=== PATIENT | male | born 1960 | race Caucasian/White ===

== ENCOUNTER 2017-04-11 10:52 | Outpatient (CLI) | payer OTHER ==
--- NOTE | 2017-04-11 12:49 | MRI Report ---
EXAM: RIGHT HUMERUS MRI WITHOUT CONTRST EXAM DATE: 04/11/2017 12:06 PM. CLINICAL HISTORY: Biceps tendon and muscle injury. [place] a "pop". Right upper arm pain and swelling. COMPARISON: Right elbow radiography from 03/28/2017. TECHNIQUE: Multiplanar, multisequence T1-weighted and fluid-sensitive sequences of the mid to distal humerus and elbow without contrast. Other: None. FINDINGS: Bones: No fractures or subluxations. No marrow edema. No bone lesions. Joint Spaces: Very small elbow joint effusion. No loose bodies. No dislocation. Tendons: There is a full thickness or a very high-grade partial-thickness tear at the distal aspect o f the biceps brachii tendon. The torn portions of the tendon are retracted by approximately 2 cm. The re is a small amount of edema and fluid, likely representing hemorrhage, around the distal biceps ten don. The brachialis and triceps tendons are intact. There is a high-grade partial-thickness tear at t he lateral epicondylar origin site of the common extensor tendon. There is a moderate grade partial t hickness tear at the medial epicondylar origin site of the common flexor tendon. Musculature: No edema or fatty atrophy. Other: The subcutaneous tissues are unremarkable. IMPRESSION: 1. A full thickness or a very high-grade partial-thickness tear at the distal aspect of the biceps br achii tendon. 2. High-grade partial tear at the lateral epicondylar origin site of the common extensor tendon and m oderate grade partial-thickness tear of the medial epicondylar origin site of the common flexor tendo n. 3. Very small joint effusion. [facility] MUSCULOSKELET[facility]IOLOG[facility] SECTION Referring Provider Line: [phone] SITE ID: [id number]
== END 2017-04-11 10:53 | disposition home or self-care (01) ==
LOC: DI 10:52
PROVIDERS: ATTEND Family Medicine
DX: S56.511A Strain of other extensor muscle, fascia and tendon at forearm level, right arm, initial encounter (principal); S56.211A Strain of other flexor muscle, fascia and tendon at forearm level, right arm, initial encounter; M25.421 Effusion, right elbow

== ENCOUNTER 2017-05-17 10:15 | Outpatient (CLI) | payer OTHER ==
[2017-05-17 13:48] LABS: ALBUMIN/GLOBULIN RATIO 1.7 (1.0-2.2); BUN - BLOOD UREA NITROGEN 20 mg/dL (6-20); CARBON DIOXIDE - CO2 26 mmol/L (21-32); CHLORIDE 106 mmol/L (101-111); CHOL/HDL RATIO 5.1 (<5.0); CHOLESTEROL 220 mg/dL; CREATININE 1.2 mg/dL (0.6-1.2); GFR - MDRD 63 (>89); GLUCOSE 90 mg/dL (70-100); HDL CHOLESTEROL 43 mg/dL; LDL/HDL RATIO 3.8 (<3.6); POTASSIUM 3.8 mmol/L (3.5-5.0); SODIUM 139 mmol/L (135-145); TOTAL PROTEIN 6.7 g/dL (6.7-8.2); TRIGLYCERIDES 71 mg/dL; VLDL CHOLESTEROL 14 mg/dL
== END 2017-05-17 10:16 | disposition home or self-care (01) ==
LOC: LAB.WCP 10:15
PROVIDERS: ATTEND Family Medicine
DX: E78.5 Hyperlipidemia, unspecified (principal); Z12.5 Encounter for screening for malignant neoplasm of prostate
CPT/HCPCS: 36415; 80053; 80061; 84153

== ENCOUNTER 2018-08-11 10:25 | Outpatient (CLI) | payer OTHER ==
[2018-08-11 19:23] LABS: ALBUMIN 3.7 g/dL (3.2-5.5); ALBUMIN/GLOBULIN RATIO 1.2 (1.0-2.2); ALKALINE PHOSPHATASE 29 IU/L (42-121); ALT ALANINE AMINOTRANSFERASE 21 IU/L (10-60); AST ASPARTATE AMINOTRANSFERASE 34 IU/L (10-42); BUN - BLOOD UREA NITROGEN 21 mg/dL (6-20); CARBON DIOXIDE - CO2 28 mmol/L (21-32); CHLORIDE 103 mmol/L (101-111); CHOL/HDL RATIO 4.3 (<5.0); CHOLESTEROL 217 mg/dL; GFR - MDRD 77 (>89); GLUCOSE 85 mg/dL (70-100); HDL CHOLESTEROL 50 mg/dL; LDL CHOLESTEROL,CALCULATED 153 mg/dL; LDL/HDL RATIO 3.1 (<3.6); SODIUM 140 mmol/L (135-145); TOTAL PROTEIN 6.8 g/dL (6.7-8.2); VLDL CHOLESTEROL 14 mg/dL
== END 2018-08-11 10:26 | disposition home or self-care (01) ==
LOC: LAB.WCP 10:25
PROVIDERS: ATTEND Family Medicine
DX: E78.5 Hyperlipidemia, unspecified (principal); Z12.5 Encounter for screening for malignant neoplasm of prostate
CPT/HCPCS: 36415; 80053; 80061; 83721; 84153

== ENCOUNTER 2019-01-09 12:06 | Outpatient (CLI) | payer OTHER ==
--- NOTE | 2019-01-10 13:59 | MRI Report ---
Reason: RT SHOULDER PAIN Procedure Date: 01/09/2019 Accession Number: [id number] / [id number] Procedure: MRI - Shoulder RT W/O CPT Code: FULL RESULT: EXAM: RIGHT SHOULDER MRI WITHOUT CONTRAST EXAM DATE: 01/09/2019 01:10 PM. CLINICAL HISTORY: Right shoulder pain. COMPARISON: SHOULDER 3 VIEW RT 05/01/2018 3:03 PM. TECHNIQUE: Multiplanar, multisequence T1-weighted and fluid-sensitive sequences of the shoulder without contrast. Other: None. FINDINGS: Acromioclavicular Region: The acromion is type II. The acromioclavicular joint is unremarkable. Small to moderate amount of fluid at the subacromial subdeltoid bursa. The coracoacromial and coracoclavicular ligaments are intact. Glenohumeral Region: No subluxation. Small joint effusion. No loose bodies. The articular cartilage is unremarkable. The glenohumeral ligaments and joint capsule are unremarkable. Bone Marrow: No fracture, marrow edema or bone lesions. Labrum: The labrum is unremarkable on this nonarthrographic study. Musculature/Rotator Cuff: There is an approximately 2.7 cm AP by 2.9 cm proximal to distal, full-thickness, near full width tear of the supraspinatus tendon. There is tendinosis and a low-grade partial thickness intrasubstance tear within the infraspinatus tendon. Teres minor tendon is unremarkable. Small 3 mm low-grade partial thickness intrasubstance insertional tear at the distal end of the subscapularis tendon. No edema or fatty atrophy. Biceps Tendon: The long head of the biceps tendon and biceps renee are intact. Other: The subcutaneous tissues are unremarkable. IMPRESSION: 1. Full-thickness, near full width tear of the supraspinatus tendon. Tendinosis and a low-grade partial thickness intrasubstance tear within the infraspinatus tendon. Small low-grade partial thickness intrasubstance insertional tear at the distal end of the subscapularis tendon. 2. Small to moderate amount of fluid at the subacromial subdeltoid bursa. Small glenohumeral joint effusion. [facility] MUSCULOSKELET[facility] RADIOLOGY SECTION
== END 2019-01-09 12:07 | disposition home or self-care (01) ==
LOC: DI 12:06
PROVIDERS: ATTEND Orthopaedic Surgery
DX: M75.41 Impingement syndrome of right shoulder (principal); S46.811A Strain of other muscles, fascia and tendons at shoulder and upper arm level, right arm, initial encounter; M75.101 Unspecified rotator cuff tear or rupture of right shoulder, not specified as traumatic; M67.911 Unspecified disorder of synovium and tendon, right shoulder; M25.411 Effusion, right shoulder

== ENCOUNTER 2019-06-23 08:00 | Outpatient (CLI) | payer OTHER ==
[2019-06-23 12:36] LABS: BASOPHILS % (AUTO) 1.1 %; EOSINOPHILS # (AUTO) 0.1 10^3/uL (0.0-0.7); EOSINOPHILS % (AUTO) 1.9 %; HGB - HEMOGLOBIN 13.3 g/dL (14.0-18.0); LYMPHOCYTES # (AUTO) 1.4 10^3/uL (1.5-3.5); LYMPHOCYTES % (AUTO) 37.1 %; MEAN CORPUSCULAR HEMOGLOBIN 27.8 pg (27.0-31.0); MEAN CORPUSCULAR HGB CONC 31.3 g/dL (32.0-36.0); MEAN CORPUSCULAR VOLUME 88.9 fL (80.0-94.0); MEAN PLATELET VOLUME 11.3 fL (7.4-11.4); MONOCYTES # (AUTO) 0.3 10^3/uL (0.0-1.0); MONOCYTES % (AUTO) 9.2 %; NEUTROPHILS # (AUTO) 1.9 10^3/uL (1.5-6.6); NEUTROPHILS % (AUTO) 50.7 %; PLT - PLATELET COUNT 163 10^3/uL (130-450); RED BLOOD COUNT 4.78 10^6/uL (4.70-6.10); RED CELL DISTRIBUTION WIDTH 13.4 % (12.0-15.0); WHITE BLOOD COUNT 3.7 x10^3/uL (4.8-10.8)
[2019-06-23 13:04] LABS: ALBUMIN 4.2 g/dL (3.2-5.5); ALBUMIN/GLOBULIN RATIO 1.4 (1.0-2.2); ALKALINE PHOSPHATASE 33 IU/L (42-121); ALT ALANINE AMINOTRANSFERASE 22 IU/L (10-60); AST ASPARTATE AMINOTRANSFERASE 37 IU/L (10-42); BUN - BLOOD UREA NITROGEN 18 mg/dL (6-20); CARBON DIOXIDE - CO2 30 mmol/L (21-32); CHLORIDE 107 mmol/L (101-111); CHOL/HDL RATIO 4.4 (<5.0); CHOLESTEROL 238 mg/dL; CREATININE 1.1 mg/dL (0.6-1.2); GFR - MDRD 69 (>89); GLUCOSE 91 mg/dL (70-100); HDL CHOLESTEROL 54 mg/dL; LDL CHOLESTEROL,CALCULATED 171 mg/dL; LDL/HDL RATIO 3.2 (<3.6); SODIUM 140 mmol/L (135-145); TOTAL PROTEIN 7.3 g/dL (6.7-8.2); VLDL CHOLESTEROL 13 mg/dL
== END 2019-06-23 23:59 | disposition home or self-care (01) ==
LOC: LAB.WCP 08:00
PROVIDERS: ATTEND Family Medicine
DX: E78.5 Hyperlipidemia, unspecified (principal); Z12.5 Encounter for screening for malignant neoplasm of prostate
CPT/HCPCS: 36415; 80050; 80061; 83721; 84153

== ENCOUNTER 2020-01-08 14:22 | Emergency (ER) | payer OTHER ==
[2020-01-08 14:28] VITALS: BP 131/83
--- NOTE | 2020-01-08 14:54 | ED Physician Documentation ---
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 The cough is minimally productive. He has mild shortness of breath. His was diagnosed with pneumonia about a week ago. Unclear if she had influenza or COVID testing.) Review of Systems Constitutional: reports: Fever, Chills, Myalgias Eyes: denies: Loss of vision, Decreased vision Ears: denies: Ear pain Nose: denies: Rhinorrhea / runny nose Throat: denies: Sore throat Respiratory: reports: Dyspnea, Cough. denies: Hemoptysis, Wheezing PD PAST MEDICAL HISTORY - Present Medications Home Medications: Ambulatory Orders Medication Instructions Recorded Confirmed Acetaminophen [Tylenol] 650 mg PO Q6H PRN #30 tab 01/08/20 - Allergies Allergies/Adverse Reactions: Allergies Allergy/AdvReac Type Severity Reaction Status Date / Time No Known Drug Allergies Allergy Verified 01/08/20 14:27 PD ED PE NORMAL - Vitals Vital signs reviewed: Yes - General General: Alert and oriented X 3, No acute distress - HEENT HEENT: PERRL, EOMI - Neck Neck: Supple, no meningeal sign, No bony TTP - Cardiac Cardiac: RRR, No murmur - Respiratory Respiratory: No respiratory distress, Clear bilaterally - Derm Derm: No rash - Extremities Extremities: No edema, No calf tenderness / cord - Neuro Neuro: Alert and oriented X 3, Normal speech Results - Vitals Vitals: Vital Signs - 24 hr 01/08/20 01/08/20 14:24 16:05 Temperature 38.1 C H 37.6 C H Heart Rate 63 Respiratory 16 16 Rate Blood Pressure 131/83 H O2 Saturation 99 Oxygen O2 Source Room air - Labs Labs: Laboratory Tests 01/08/20 15:00 Influenza A (Rapid) Negative Influenza B (Rapid) Negative - Rads (name of study) 2v chest Radiology: EMP read contemporaneously (neg) PD MEDICAL DECISION MAKING - ED course ED course: 59-year-old gentleman with viral syndrome, potential pneumonia. I will call him with the results of studies in the department at [phone] Departure - Departure Disposition: Home, Self Care Clinical Impression: Viral syndrome Condition: Good Record reviewed to determine appropriate education?: Yes Instructions: ED Viral Syndrome Prescriptions: Acetaminophen [Tylenol] 650 mg PO Q6H PRN #30 tab PRN Reason: Pain Comments: Call your doctor to arrange a follow-up appointment, make the next available appointment. In the interim, return anytime if worse or if new symptoms develop. Forms: Activity restrictions Discharge Date/Time: 01/08/20 16:06
--- NOTE | 2020-01-08 15:25 | XRAY Report ---
Reason: cough Procedure Date: 01/08/2020 Accession Number: [id number] / [id number] Procedure: XR - Chest 2 View X-Ray CPT Code: 80615 Final Report FULL RESULT: EXAM: CHEST RADIOGRAPHY EXAM DATE: 01/08/2020 03:16 PM. CLINICAL HISTORY: Cough. COMPARISON: None. TECHNIQUE: 2 views. FINDINGS: Lungs/Pleura: No focal opacities evident. No pleural effusion. No pneumothorax. Normal volumes. Mediastinum: Heart and mediastinal contours are unremarkable. Other: None. IMPRESSION: Normal 2-view chest radiography. [facility]
[2020-01-08] MEDS ORDERED: ACETAMINOPHEN 325 MG TABLET PO STA (15:56)
== END 2020-01-08 16:06 | disposition home or self-care (01) ==
LOC: ED 14:22
DX: B34.9 Viral infection, unspecified (principal)
CPT/HCPCS: 71046; 81599; 87275; 87276; 99284; A9270

== ENCOUNTER 2020-06-29 10:52 | Outpatient (CLI) | payer OTHER ==
[2020-06-29 18:14] LABS: BASOPHILS % (AUTO) 0.9 %; EOSINOPHILS # (AUTO) 0.1 10^3/uL (0.0-0.7); EOSINOPHILS % (AUTO) 1.7 %; HGB - HEMOGLOBIN 13.1 g/dL (14.0-18.0); LYMPHOCYTES # (AUTO) 1.3 10^3/uL (1.5-3.5); LYMPHOCYTES % (AUTO) 36.6 %; MEAN CORPUSCULAR HEMOGLOBIN 28.7 pg (27.0-31.0); MEAN CORPUSCULAR HGB CONC 31.3 g/dL (32.0-36.0); MEAN CORPUSCULAR VOLUME 91.9 fL (80.0-94.0); MONOCYTES # (AUTO) 0.3 10^3/uL (0.0-1.0); MONOCYTES % (AUTO) 9.4 %; NEUTROPHILS # (AUTO) 1.8 10^3/uL (1.5-6.6); NEUTROPHILS % (AUTO) 51.4 %; PLT - PLATELET COUNT 171 10^3/uL (130-450); RED BLOOD COUNT 4.56 10^6/uL (4.70-6.10); RED CELL DISTRIBUTION WIDTH 13.6 % (12.0-15.0); WHITE BLOOD COUNT 3.5 x10^3/uL (4.8-10.8)
[2020-06-29 18:37] LABS: ALBUMIN 4.2 g/dL (3.2-5.5); ALBUMIN/GLOBULIN RATIO 1.4 (1.0-2.2); ALKALINE PHOSPHATASE 26 IU/L (42-121); ALT ALANINE AMINOTRANSFERASE 27 IU/L (10-60); AST ASPARTATE AMINOTRANSFERASE 49 IU/L (10-42); BUN - BLOOD UREA NITROGEN 17 mg/dL (6-20); CALCIUM 9.3 mg/dL (8.5-10.3); CARBON DIOXIDE - CO2 27 mmol/L (21-32); CHLORIDE 104 mmol/L (101-111); CHOL/HDL RATIO 3.4 (<5.0); CHOLESTEROL 181 mg/dL; CREATININE 1.1 mg/dL (0.6-1.2); GLUCOSE 89 mg/dL (70-100); HDL CHOLESTEROL 54 mg/dL; LDL CHOLESTEROL,CALCULATED 113 mg/dL; LDL/HDL RATIO 2.1 (<3.6); SODIUM 139 mmol/L (135-145); TOTAL PROTEIN 7.2 g/dL (6.7-8.2); VLDL CHOLESTEROL 14 mg/dL
== END 2020-06-29 23:59 | disposition home or self-care (01) ==
LOC: LAB.WCP 10:52
PROVIDERS: ATTEND Family Medicine
DX: E78.5 Hyperlipidemia, unspecified (principal); Z12.5 Encounter for screening for malignant neoplasm of prostate
CPT/HCPCS: 36415; 80050; 80061; 83721; 84153

== ENCOUNTER 2020-07-21 13:59 | Outpatient (CLI) | payer OTHER | END 2020-07-21 23:59 | disposition home or self-care (01) | LOC: LAB.R 13:59 | PROVIDERS: ATTEND Family Medicine | DX: J02.9 Acute pharyngitis, unspecified (principal) | CPT/HCPCS: 87070 ==

== ENCOUNTER 2020-07-26 17:40 | Outpatient (CLI) | payer OTHER | END 2020-07-26 17:41 | disposition home or self-care (01) | LOC: COV 17:40 | PROVIDERS: ATTEND Family Medicine | DX: U07.1 COVID-19 (principal) ==

== ENCOUNTER 2021-01-24 10:15 | Outpatient (CLI) | payer OTHER ==
[2021-01-24 18:17] LABS: ALBUMIN 4.1 g/dL (3.2-5.5); ALBUMIN/GLOBULIN RATIO 1.4 (1.0-2.2); BILIRUBIN,TOTAL 0.9 mg/dL (0.2-1.0); CREATININE 1.2 mg/dL (0.6-1.2); TOTAL PROTEIN 7.1 g/dL (6.7-8.2)
== END 2021-01-24 23:59 | disposition home or self-care (01) ==
LOC: LAB.WCP 10:15
PROVIDERS: ATTEND Nurse Practitioner
DX: R79.89 Other specified abnormal findings of blood chemistry (principal)
CPT/HCPCS: 36415; 80053

== ENCOUNTER 2023-02-08 13:36 | Outpatient (CLI) | payer OTHER ==
--- NOTE | 2023-02-08 16:55 | MRI Report ---
PROCEDURE: ANKLE WO - LT INDICATIONS: CHRONIC LT INSTEP PAIN TECHNIQUE: Noncontrast sagittal T1 spin echo and T2 fast spin echo with fat saturation, axial proton density fas t spin echo and T2 fast spin echo with fat saturation, coronal T1 spin echo and T2 fast spin echo wit h fat saturation through the ankle/hindfoot. COMPARISON: None. FINDINGS: Image quality: Excellent. Bones and joints: No acute bone marrow contusions or fractures. There is mild T2 signal elevation w ithin the proximal aspects of the third and fifth metatarsals adjacent to their respective tarsometat arsal joints, consistent with osteoarthritis. No hindfoot coalitions. There is cortical irregularity with underlying mild ill-defined T2 signal elevation involving the medial talar dome, spanning roughl y 10 mm anteroposterior by 7 mm transverse. Moderate ankle joint effusion. Moderate talonavicular humberto nt effusion. Medial structures: The posterior tibialis, flexor digitorum longus, and flexor hallucis longus tendo ns are intact, and demonstrate moderate surrounding fluid. The posterior tibial neurovascular bundle appears normal within the tarsal tunnel, without extrinsic mass effect. The deep layer (anterior an d posterior tibiotalar ligaments) and superficial layer (tibionavicular, tibiospring, and tibiocalcan eal ligaments) of the deltoid ligament appear normal. The spring ligament components (superomedial c alcaneonavicular, medioplantar oblique calcaneonavicular, and inferoplantar longitudinal ligaments) a re intact. Lateral structures: The anterior talofibular, calcaneofibular, and posterior talofibular ligaments a ppear intact. More superiorly, the anterior and posterior tibiofibular ligaments appear normal, as i s the intermalleolar ligament. The tibiofibular syndesmosis is normal in width at 2 mm or less. The peroneus longus and brevis tendons demonstrate normal location and a small amount of surrounding flu id. Adjacent bony peroneal tubercle and retrotrochlear prominence are normal in size. The sinus tar si demonstrates normal fatty signal, without edema, fibrosis, or cyst formation. Visualized sinus ta rsi components (cervical ligament, interosseous talocalcaneal ligament, roots of the inferior extenso r retinaculum) appear normal. Anterior structures: The tibialis anterior, extensor hallucis longus, and extensor digitorum longus tendons appear intact. Posterior and plantar structures: Achilles tendon is intact. Medial and lateral bands of the planta r fascia are of normal thickness. No abductor digiti quinti muscle atrophy to suggest Umanzor neuropa thy. IMPRESSION: 1. Medial and lateral flexor tenosynovitis. 2. Osteochondral lesion of the medial talar dome. 3. Tibiotalar and talonavicular joint effusions. 4. Tarsometatarsal joint osteoarthritis as above. Reviewed by: Luke Sena MD on 02/08/2023 4:54 PM PDT Approved by: Luke Sena MD on 02/08/2023 4:54 PM PDT Station ID: [id number]
== END 2023-02-08 13:37 | disposition home or self-care (01) ==
LOC: DI 13:36
PROVIDERS: ATTEND Podiatrist
DX: M19.072 Primary osteoarthritis, left ankle and foot (principal); M65.9 Synovitis and tenosynovitis, unspecified; M25.472 Effusion, left ankle; M89.9 Disorder of bone, unspecified